=== PATIENT | male | born 1960 | race Caucasian/White ===

== ENCOUNTER → 2024-07-15 11:12 | Outpatient (BNVA) | payer OTHER, SELFPAY | PROVIDERS: PCP Family Medicine; Visit Provider Specialist | DX: M17.12 Unilateral primary osteoarthritis, left knee (principal); S89.92XA Unspecified injury of left lower leg, initial encounter; X58.XXXA Exposure to other specified factors, initial encounter | CPT/HCPCS: 20610; 73560; 73565; 99204; J7327 ==